=== PATIENT | female | born 1985 | race Caucasian/White ===

== ENCOUNTER → 2024-06-04 07:23 | Outpatient (REF) | payer OTHER, SELFPAY | LOC: PNTC 07:23 | PROVIDERS: ATTENDING PHYSICIAN Student in an Organized Health Care Education/Training Program | DX: O09.529 Supervision of elderly multigravida, unspecified trimester (principal); O99.210 Obesity complicating pregnancy, unspecified trimester; O34.212 Maternal care for vertical scar from previous cesarean delivery; O34.218 Maternal care for other type scar from previous cesarean delivery | CPT/HCPCS: 59025 ==

== ENCOUNTER → 2024-06-11 07:17 | Outpatient (REF) | payer OTHER, SELFPAY | LOC: PNTC 07:17 | PROVIDERS: ATTENDING PHYSICIAN Student in an Organized Health Care Education/Training Program | DX: O09.529 Supervision of elderly multigravida, unspecified trimester (principal); O99.210 Obesity complicating pregnancy, unspecified trimester; O34.219 Maternal care for unspecified type scar from previous cesarean delivery | CPT/HCPCS: 59025 ==

== ENCOUNTER → 2024-06-17 09:15 | Outpatient (REF) | payer OTHER, SELFPAY | LOC: PNTC 09:15 | PROVIDERS: ATTENDING PHYSICIAN Student in an Organized Health Care Education/Training Program | DX: O99.210 Obesity complicating pregnancy, unspecified trimester (principal); O34.219 Maternal care for unspecified type scar from previous cesarean delivery | CPT/HCPCS: 59025 ==

== ENCOUNTER → 2024-06-24 07:09 | Outpatient (REF) | payer OTHER, SELFPAY | LOC: PNTC 07:09 | PROVIDERS: ATTENDING PHYSICIAN Student in an Organized Health Care Education/Training Program | DX: O99.212 Obesity complicating pregnancy, second trimester (principal) | CPT/HCPCS: 59025 ==

== ENCOUNTER 2024-06-29 07:23 | Inpatient (IN) | payer OTHER, SELFPAY ==
[2024-06-29 07:44] VITALS: BP 119/73; BMI 38.4
[2024-06-29 08:32] LABS: Hematocrit 37.5 % (37.0-47.0); Hemoglobin 13.3 g/dL (12.0-16.0); Mean Corp Hgb Conc. 35.5 g/dL (33.0-37.0); Mean Corpuscular Hgb 31.2 pg (27.0-31.0); Mean Platelet Volume 10.7 fL (7.4-10.4); Platelet Count 147 10^3/uL (130-400); Red Blood Cell Count 4.26 10^6/uL (4.20-5.40); Red Cell Dist. Width 13.3 % (11.5-14.5); White Blood Cell Count 8.3 10^3/uL (4.8-10.8)
[2024-06-29] MEDS: TYLENOL 1000 MG PO (09:05)
[2024-06-29] MEDS: LR 1000 IV (09:05)
[2024-06-29] MEDS: ANCEF 10 IV (09:29)
[2024-06-29] MEDS: BICITRA 30 ML PO (09:29)
[2024-06-29] MEDS: PITOCIN 30 UNITS/NSS 500 ML IV (11:00)
[2024-06-29] MEDS: TORADOL 15 MG IV ×3 (11:35→23:51)
[2024-06-30 05:17] LABS: Hematocrit 33.9 % (37.0-47.0); Hemoglobin 12.2 g/dL (12.0-16.0); Mean Corpuscular Hgb 31.8 pg (27.0-31.0); Mean Corpuscular Volume 88.3 fL (81.0-99.0); Mean Platelet Volume 10.8 fL (7.4-10.4); Platelet Count 131 10^3/uL (130-400); Red Blood Cell Count 3.84 10^6/uL (4.20-5.40); Red Cell Dist. Width 13.2 % (11.5-14.5); White Blood Cell Count 13.6 10^3/uL (4.8-10.8)
[2024-06-30] MEDS: TORADOL 15 MG IV (05:58)
[2024-06-30] MEDS: TYLENOL 650 MG PO ×2 (05:58→20:12)
--- NOTE | 2024-06-30 08:27 | W.PN.ANS.POP ---
Anesthesia Post Operative
- Anesthesia Post Op Note
Vital Signs Stable-See Nursing Note: Yes
Airway Patent: Yes
Adequate Pain Control: Yes
Change in Mental Status: No
Current Postoperative Nausea & Vomiting: No
Anesthesia Complications: No
General Anesthetic Recall: No (N/A)
Unplanned Admission: No
Post Op Hydration Adequate: Yes
[2024-06-30] MEDS: PRENATAL PLUS 1 TABLET PO (09:23)
[2024-06-30] MEDS: SENOKOT-S 1 TABLET PO (09:23)
[2024-06-30] MEDS: MOTRIN 600 MG PO ×2 (13:22→20:12)
[2024-06-30 15:31] LABS: Syphilis/T. pallidum Ab Reflex Negative (Negative)
[2024-07-01] MEDS: MOTRIN 600 MG PO ×2 (02:20→08:39)
[2024-07-01] MEDS: TYLENOL 650 MG PO ×2 (02:20→08:38)
[2024-07-01] MEDS: SENOKOT-S 1 TABLET PO (08:38)
[2024-07-01] MEDS: PRENATAL PLUS 1 TABLET PO (08:38)
--- NOTE | 2024-07-01 09:13 | W.DCSUMMARY ---
Documented by User: Mason Dumont MD, Resident 07/01/24 09:42
Discharge Summary
Discharge Data
Date of Admission: 06/29/24
Date of Discharge: 07/01/24
-
Pending Results: No
Hospital Course
Discharge diagnoses
* Intrauterine at 39 weeks 3 days gestation
* Elective low-transverse
* History of *1
* Fibroid uterus
Hospital course
Elenita Perez, age 39 at 39+3 weeks, came to [facility] for a repeat elective . She has a history of uncomplicated *1 and declines trial of labor. She underwent a low transverse section on 06-29-24. She delivered a viable
female with Apgars 8 and 9. weight was 9 pounds 6 ounces. Delayed cord clamping was performed. The placenta was extracted with manual assistance and noted to be intact. The surgery was uncomplicated and the post-operative course remained
unremarkable. Blood work and vitals remained within normal limits post-op. On the day of discharge, the patient was feeling good and did not have any medical complaints. She will be discharged home on pain management. Follow-up with release of information specialist in 2
weeks for incision check and then 6 weeks. Follow-up with your primary.
Discharge Plan
-
Patient Disposition: Home (Routine Discharge)
Discharge Diagnosis/Procedures: Term intrauterine at 39 weeks 3 days gestation; status-post uncomplicated LTCS; fibroid uterus
Condition: Good
Diet: As tolerated
Activity: As tolerated
Driving Restrictions: As prior to admission
Bathing Restrictions: None
Stand Alone Forms: LDRP Delivery
Referrals:
Toya Marcum DO [Family Provider] -
Kacy Mendoza DO [Active] - in two weeks (Please make an appt with [facility] in 2wks and in 6wks)
Prescriptions:
New
ibuprofen 600 mg Tablet
600 mg PO Q6HPRN PRN (Reason: cramps) Qty: 60 0RF
acetaminophen 325 mg Tablet
650 mg PO Q4HPRN PRN (Reason: mild pain) Qty: 0 0RF
sennosides-docusate sodium 8.6-50 mg Tablet
1 tab PO DAILYPRN PRN (Reason: constipation) Qty: 0 0RF
oxycodone 5 mg tablet
5 mg PO Q4H PRN (Reason: severe pain) Qty: 5 0RF
Continued
Vitamin Tablet
1 tab PO DAILY
Discontinued
aspirin [Baby Aspirin] 81 mg Tablet,Chewable
81 mg PO DAILY
Discharge Orders:
Discharge Patient (As Directed); Ordered 07/01/24
Ordered By: Eloisa Roberts
Discharge Date and Time
Print Language: PASHTO

Documented by User: Eloisa Roberts DO 07/01/24 10:27
Discharge Summary
Discharge Data
Date of Admission: 06/29/24
Date of Discharge: 07/01/24
Discharge Plan
-
Patient Disposition: Home (Routine Discharge)
Discharge Diagnosis/Procedures: Term intrauterine at 39 weeks 3 days gestation; status-post uncomplicated LTCS; fibroid uterus
Condition: Good
Diet: As tolerated
Activity: As tolerated
Driving Restrictions: As prior to admission
Bathing Restrictions: None
Stand Alone Forms: LDRP Delivery
Referrals:
Toya Marcum DO [Family Provider] -
Kacy Mendoza DO [Active] - in two weeks (Please make an appt with [facility] in 2wks and in 6wks)
Prescriptions:
New
ibuprofen 600 mg Tablet
600 mg PO Q6HPRN PRN (Reason: cramps) Qty: 60 0RF
acetaminophen 325 mg Tablet
650 mg PO Q4HPRN PRN (Reason: mild pain) Qty: 0 0RF
sennosides-docusate sodium 8.6-50 mg Tablet
1 tab PO DAILYPRN PRN (Reason: constipation) Qty: 0 0RF
oxycodone 5 mg tablet
5 mg PO Q4H PRN (Reason: severe pain) Qty: 5 0RF
Continued
Vitamin Tablet
1 tab PO DAILY
Discontinued
aspirin [Baby Aspirin] 81 mg Tablet,Chewable
81 mg PO DAILY
Discharge Orders:
Discharge Patient (As Directed); Ordered 07/01/24
Ordered By: Eloisa Roberts
Discharge Date and Time
Print Language: PASHTO
== END 2024-07-01 11:49 | disposition home or self-care (01) | DRG 788 ==
LOC: LDRP 07:23
PROVIDERS: ADMITTING PHYSICIAN Obstetrics & Gynecology; FAMILY PHYSICIAN Family Medicine
PROC: 10D00Z1 Extraction of Products of Conception, Low, Open Approach (ICD-10-PCS; 2024-06-29)
DX: O34.211 Maternal care for low transverse scar from previous cesarean delivery (principal); N85.8 Other specified noninflammatory disorders of uterus; Z3A.39 39 weeks gestation of pregnancy; Z37.0 Single live birth; D25.9 Leiomyoma of uterus, unspecified; O34.13 Maternal care for benign tumor of corpus uteri, third trimester
CPT/HCPCS: 36415; 85027; 86780; 86850; 86900; 86901